=== PATIENT | female | born 1980 | race Caucasian/White ===

== ENCOUNTER → 2021-12-10 10:08 | Outpatient (CLI) | payer OTHER, SELFPAY ==
[2021-12-10 11:25] LABS: Follicle Stimulating Hormone 2.25 mIU/mL; Luteinizing Hormone 3.57 mIU/mL
== END ==
PROVIDERS: Family Provider Family Medicine; PCP Family Medicine; Referring Provider Obstetrics & Gynecology; Visit Provider Obstetrics & Gynecology
DX: N95.1 Menopausal and female climacteric states (principal); R63.5 Abnormal weight gain
CPT/HCPCS: 36415; 83001; 83002; 84443